=== PATIENT | female | born 1990 | race Caucasian/White ===

== ENCOUNTER 2017-06-12 07:44 | Emergency (ER) | payer OTHER ==
[2017-06-12] MEDS ORDERED: LIDOCAINE PATCH 5% TOP STA (08:28)
--- NOTE | 2017-06-12 08:31 | ED Physician Documentation ---
History of Present Illness - Stated complaint Stated Complaint: LEFT THIGH PX - Chief complaint Chief Complaint: Ext Problem - Additonal information Additional information: hx from pt 26 f AD [place] a few days ago while getting up she felt a tear to her distal lateral L quad taking motrin but pain since pia with stairs otherwise well - no fever cough NVD etc denies preg Review of Systems Constitutional: denies: Fever, Chills Musculoskeletal: reports: Extremity pain. denies: Back pain Neurologic: denies: Focal weakness, Numbness PD PAST MEDICAL HISTORY - Past Medical History Past Medical History: Yes Derm: Eczema - Past Surgical History Past Surgical History: No - Present Medications Home Medications: Ambulatory Orders Medication Instructions Recorded Confirmed Cyclobenzaprine [Flexeril] 10 mg PO TID PRN #20 tablet 06/12/17 Fluconazole [Diflucan] 50 mg PO DAILY 06/12/17 06/12/17 Levonorgestrel [Mirena] 1 each IY DAILY 06/12/17 06/12/17 Lidocaine Patch 5% [Lidoderm Patch] 1 each TOP DAILY PRN #10 patch 06/12/17 Minocycline HCl 50 mg PO BID 06/12/17 06/12/17 metroNIDAZOLE [Metronidazole] 70 gm VG DAILY 06/12/17 06/12/17 - Allergies Allergies/Adverse Reactions: Allergies Allergy/AdvReac Type Severity Reaction Status Date / Time No Known Drug Allergies Allergy Verified 06/12/17 07:52 - Social History Does the pt smoke?: No Smoking Status: Never smoker Does the pt drink ETOH?: No Does the pt have substance abuse?: No - Immunizations Immunizations are current?: Yes PD ED PE NORMAL - Vitals Vital signs reviewed: Yes - Cardiac Cardiac: RRR - Respiratory Respiratory: No respiratory distress, Clear bilaterally - Extremities Extremities: Other (no defmormity, TTP dital lat L quad s palpable mm defect, extensor mech intact, MSV intact) Results - Vitals Vitals: Vital Signs - 24 hr 06/12/17 07:50 Temperature 36.0 C L Heart Rate 74 Respiratory 16 Rate Blood Pressure 121/82 H O2 Saturation 98 Oxygen O2 Source Room air Departure - Departure Disposition: Home, Self Care Clinical Impression: Quadriceps muscle strain Qualifiers: Encounter type: initial encounter Laterality: left Qualified Code(s): S76.112A - Strain of left quadriceps muscle, fascia and tendon, initial encounter Condition: Good Instructions: ED Strain Muscle Ext Follow-Up: [facility] [Provider Group] Prescriptions: Cyclobenzaprine [Flexeril] 10 mg PO TID PRN #20 tablet PRN Reason: Spasms Lidocaine Patch 5% [Lidoderm Patch] 1 each TOP DAILY PRN #10 patch PRN Reason: Pain Comments: Continue the motrin Ice for 20 min several times a day. No running squats etc for a week. Follow up at [facility] for duty status
[2017-06-12 08:40] VITALS: BP 104/71
== END 2017-06-12 08:42 | disposition home or self-care (01) ==
LOC: ED 07:44
DX: S76.112A Strain of left quadriceps muscle, fascia and tendon, initial encounter (principal); X50.1XXA Overexertion from prolonged static or awkward postures, initial encounter; Y92.019 Unspecified place in single-family (private) house as the place of occurrence of the external cause
CPT/HCPCS: 99283; A9270

== ENCOUNTER 2017-12-08 15:16 | Emergency (ER) | payer OTHER ==
--- NOTE | 2017-12-08 17:37 | ED Physician Documentation ---
History of Present Illness - Stated complaint Stated Complaint: FEMALE - Chief complaint Chief Complaint: General - Additonal information Additional information: hx from pt 27 y/o f went to PMD yesterday for exam 2/2 STD exposure during pelvic exam IUD strings could not be seen so pt has an outpt sono ordered but it will not be done for a while today had abd cramping to 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 - Present Medications Home Medications: Ambulatory Orders Medication Instructions Recorded Confirmed Fluconazole [Diflucan] 50 mg PO DAILY 06/12/17 06/12/17 Levonorgestrel [Mirena] 1 each IY DAILY 06/12/17 06/12/17 Minocycline HCl 50 mg PO BID 06/12/17 06/12/17 metroNIDAZOLE [Metronidazole] 70 gm VG DAILY 06/12/17 06/12/17 - Allergies Allergies/Adverse Reactions: Allergies Allergy/AdvReac Type Severity Reaction Status Date / Time No Known Drug Allergies Allergy Verified 12/08/17 15:31 - Social History Does the pt smoke?: No Smoking Status: Never smoker Does the pt drink ETOH?: Yes Does the pt have substance abuse?: No - Immunizations Immunizations are current?: Yes PD ED PE NORMAL - Vitals Vital signs reviewed: Yes - Cardiac Cardiac: RRR - Respiratory Respiratory: No respiratory distress - Abdomen Abdomen: Soft, Other (TTP LLQ s rebound or guarding) Results - Vitals Vitals: Vital Signs - 24 hr 12/08/17 12/08/17 15:27 20:13 Temperature 36.6 C 36.4 C L Heart Rate 63 67 Respiratory 18 15 Rate Blood Pressure 107/73 110/67 O2 Saturation 100 98 Oxygen O2 Source Room air - Labs Labs: Laboratory Tests 12/08/17 12/08/17 15:20 15:20 Urine Color YELLOW Urine Clarity CLEAR Urine pH 6.0 Ur Specific [place] 1.010 1.010 Urine Protein NEGATIVE Urine Glucose (UA) NEGATIVE Urine Ketones NEGATIVE Urine Occult Blood NEGATIVE Urine Nitrite NEGATIVE Urine Bilirubin NEGATIVE Urine Urobilinogen 0.2 (NORMAL) Ur Leukocyte Esterase TRACE H Urine RBC None Seen Urine WBC 0-3 Ur Squamous Epith Cells MANY Squamous H Urine Bacteria Few Ur Microscopic Review INDICATED Urine Culture Comments NOT INDICATED Urine HCG, Qual NEGATIVE PD MEDICAL DECISION MAKING - ED course ED course: pt sent to eval for IUD displacement as strings could not be found in [facility] UP PERSON clinic and having crampy pelvic pain nand LLQ TTP already had STD testing at [facility] UA neg HCG neg sono nl with IUD in place and no cyst or torsion TTP is on left so doubt appendicitis long ER stay - delay for sono getting done 2/2 equipment issues - Sepsis Event Vital Signs: Vital Signs - 24 hr 12/08/17 12/08/17 15:27 20:13 Temperature 36.6 C 36.4 C L Heart Rate 63 67 Respiratory 18 15 Rate Blood Pressure 107/73 110/67 O2 Saturation 100 98 Oxygen O2 Source Room air Departure - Departure Disposition: 01 Home, Self Care Clinical Impression: IUD (intrauterine device) in place Condition: Good Follow-Up: [facility] [Provider Group] Comments: The IUD is in place And there is no urine infection. [place] has already addressed he STD exposure Recommend motrin and tylenol as needed for the pain Follow up at [facility] for culture results
[2017-12-08] MEDS ORDERED: IBUPROFEN 400 MG TABLET PO STA (17:57)
[2017-12-08] MEDS ORDERED: ACETAMINOPHEN 325 MG TABLET PO STA (17:57)
[2017-12-08 19:31] LABS: BILIRUBIN,URINE NEGATIVE (NEGATIVE); GLUCOSE, URINE (UA) NEGATIVE (NEGATIVE); KETONES,URINE (UA) NEGATIVE (NEGATIVE); LEUKOCYTE ESTERASE, URINE TRACE (NEGATIVE); NITRITE,URINE NEGATIVE (NEGATIVE); OCCULT BLOOD,URINE NEGATIVE (NEGATIVE); PROTEIN,URINE NEGATIVE (NEGATIVE); UROBILINOGEN,URINE 0.2 (NORMAL) E.U./dL (NORMAL)
[2017-12-08 19:36] LABS: CLARITY,URINE CLEAR (CLEAR); HCG UR QUAL NEGATIVE
[2017-12-08 19:47] LABS: BACTERIA,URINE Few /HPF (None Seen); RBC,URINE None Seen /HPF (0-5); SQUAMOUS EPITHELIAL CELL,UR MANY Squamous (<= Few)
[2017-12-08 20:13] VITALS: BP 110/67
--- NOTE | 2017-12-08 20:23 | Ultrasound Report ---
Procedure Date: 12/08/2017 Accession Number: [id number] / [id number] Procedure: US - Pelvic w/Transvag+Doppler Ltd CPT Code: FULL RESULT: EXAM: PELVIC ULTRASOUND EXAM DATE: 12/08/2017 07:26 PM. CLINICAL HISTORY: Left lower quadrant pain, IUD strings not visualized. COMPARISON: None. TECHNIQUE: Realtime transabdominal pelvic scan performed to identify the uterus and adnexa and as an overview of other pelvic structures, followed by transvaginal scan to provide greater detail of the uterus and adnexa, with static image documentation. FINDINGS: Uterus: 7.7 x 3.6 x 4.7 cm, volume 67.8 cc. Anteverted position. Normal overall size and echotexture. Masses: None. Endometrium: 6.3 mm. IUD visualized centrally within the uterine cavity. Cervix: Unremarkable. Right Ovary: 3.7 x 1.9 x 1.6 cm, volume 5.7 cc. Normal echotexture and blood flow. Left Ovary: 2.2 x 2.7 x 2.7 cm, volume 8.2 cc. Normal echotexture and blood flow. Free Fluid: None. Other: None. IMPRESSION: 1. Normal pelvic ultrasound exam noting satisfactory intrauterine device position. [facility]
== END 2017-12-08 20:33 | disposition home or self-care (01) ==
LOC: ED 15:16
DX: Z97.5 Presence of (intrauterine) contraceptive device (principal); R10.9 Unspecified abdominal pain
CPT/HCPCS: 76830; 76856; 81001; 81025; 93976; 99283; A9270; 81003; 87086

== ENCOUNTER 2018-03-03 09:28 | Emergency (ER) | payer OTHER ==
[2018-03-03 09:38] VITALS: BP 104/66
--- NOTE | 2018-03-03 10:09 | XRAY Report ---
Reason: painful ambulation Procedure Date: 03/03/2018 Accession Number: [id number] / [id number] Procedure: XR - Knee 4 View RT CPT Code: FULL RESULT: EXAM: RIGHT KNEE RADIOGRAPHY EXAM DATE: 03/03/2018 09:57 AM. CLINICAL HISTORY: Painful ambulation. COMPARISON: None. TECHNIQUE: 4 views. FINDINGS: Bones: Normal. No fractures or bone lesions. Joints: Normal. No effusion. No subluxations. Soft Tissues: Normal. No soft tissue swelling. IMPRESSION: No acute fracture or dislocation. [facility]
--- NOTE | 2018-03-03 11:15 | ED Physician Documentation ---
PD HPI LOWER EXT INJURY - Stated complaint Stated Complaint: R KNEE PX - Chief complaint Chief Complaint: Ext Problem - History obtained from History obtained from: Patient - History of Present Illness PD HPI LOW EXT INJURY LOCATION: Right, Knee Type of injury: No: Fall, Twist Where injury occurred: Home Timing - onset: How many months ago (2) Timing - duration: Months (2) Timing - details: Gradual onset, Still present, Intermittant, Waxing and waning Pain level max: 8 Pain level now: 8 Improved by: Rest Worsened by: Other (GOING UP AND DOWN THE STAIRS) - Additional information Additional information: Pt states has right knee problems the past months. Usually discomfort monthly but this week 5 times. Right knee hurts when going downstairs. Worse today as she was carrying her 30# child at home. 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 Review of Systems Ten Systems: 10 systems reviewed and negative Constitutional: denies: Myalgias GI: denies: Abdominal Pain Musculoskeletal: reports: Extremity pain. 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 - Present Medications Home Medications: Ambulatory Orders Medication Instructions Recorded Confirmed Fluconazole [Diflucan] 50 mg PO DAILY 06/12/17 06/12/17 Levonorgestrel [Mirena] 1 each IY DAILY 06/12/17 06/12/17 RX: Minocycline HCl 50 mg PO BID 06/12/17 06/12/17 RX: metroNIDAZOLE [Metronidazole] 70 gm VG DAILY 06/12/17 06/12/17 RX: Lidocaine Patch 5% [Lidoderm 1 patch TOP DAILY #10 patch 03/03/18 Patch] - Allergies Allergies/Adverse Reactions: Allergies Allergy/AdvReac Type Severity Reaction Status Date / Time No Known Drug Allergies Allergy Verified 03/03/18 09:38 - Social History Does the pt smoke?: No Smoking Status: Never smoker Does the pt drink ETOH?: Yes Does the pt have substance abuse?: No - Immunizations Immunizations are current?: Yes PD ED PE NORMAL - Vitals Vital signs reviewed: Yes - General General: Alert and oriented X 3, No acute distress, Well developed/nourished - HEENT HEENT: Moist mucous membranes - Cardiac Cardiac: Strong equal pulses - Respiratory Respiratory: No respiratory distress - Derm Derm: Warm and dry - Extremities Extremities: No deformity, No tenderness to palpate, Normal ROM s pain, No edema, No calf tenderness / cord, Other (ambulatory steady gait. Pt seems to have mild discomfort below her right patella on the tendon area with lifting to extension of her right leg. Negative drawer's test, valgus/varus tests negative.) - Neuro Neuro: Alert and oriented X 3 - Psych Psych: Normal mood, Normal affect Results - Vitals Vitals: Vital Signs - 24 hr 03/03/18 09:36 Temperature 35.8 C L Heart Rate 69 Respiratory 15 Rate Blood Pressure 104/66 O2 Saturation 100 Oxygen O2 Source Room air PD MEDICAL DECISION MAKING - ED course Complexity details: considered differential (fracture, patella dislocation, l igamentous injury or laxity.), d/w patient (Will use cherelle wrap, avoid stairs, heavy lifting, elevate leg, otc NSAIDS, lidocaine patch. Follow up w/ PCP for MRI referral. Pt expressed understanding of outpt treatment plans.) Departure - Departure Disposition: 01 Home, Self Care Clinical Impression: Knee pain, chronic Qualifiers: Laterality: right Qualified Code(s): M25.561 - Pain in right knee Condition: Good Instructions: Knee Pain Follow-Up: [facility]IDER ALEJANDRO DO [Primary Care Provider] - Prescriptions: RX: Lidocaine Patch 5% [Lidoderm Patch] 1 patch TOP DAILY #10 patch Comments: FOLLOW UP W/ YOUR PCP FOR REEVALUATION AND MRI REFERRAL OF YOUR RIGHT KNEE. USE THE CHERELLE WRAP. ELEVATE LEG. OTC MOTRIN FOR PAIN. IF WORSE RETURN TO THE E.R. Forms: Activity restrictions Discharge Date/Time: 03/03/18 11:28
== END 2018-03-03 11:28 | disposition home or self-care (01) ==
LOC: ED 09:28
DX: M25.561 Pain in right knee (principal)
CPT/HCPCS: 99283